=== PATIENT | male | born 1950 | race Caucasian/White ===

== ENCOUNTER 2020-10-05 13:58 | Emergency (ER) | payer BC, OTHER ==
[~2020-10-05] VITALS: Ht 180.3 cm; Wt 97.3 kg
[2020-10-05] MEDS ORDERED: TETanus/Pertussis (Acell)/Diphther VAC/PF (Tdap-Adult) 0.5ml syringe IMVAC ONE (17:25)
== END 2020-10-05 17:59 | disposition home or self-care (01) ==
LOC: ER 14:01
DX: S51.832A Puncture wound without foreign body of left forearm, initial encounter (principal); M25.532 Pain in left wrist; M79.632 Pain in left forearm; G89.29 Other chronic pain; X58.XXXA Exposure to other specified factors, initial encounter; Y93.89 Activity, other specified; Y92.89 Other specified places as the place of occurrence of the external cause; Y99.8 Other external cause status
CPT/HCPCS: 90471; 90715; 99283

== ENCOUNTER 2020-11-14 06:29 | Day surgery (SDC) | payer BC ==
[2020-11-07 14:14] LABS: BASOPHILS # (AUTO) 0.1 X10'3 (0-0.2); BASOPHILS % (AUTO) 0.7 % (0-1); EOSINOPHILS # (AUTO) 0.2 X10'3 (0-0.9); LYMPHOCYTES % (AUTO) 21.2 % (21-51); MEAN CORPUSCULAR HGB CONC 33.8 g/dL (33.0-36.5); MEAN CORPUSCULAR VOLUME 88.9 FL (78-98); MEAN PLATELET VOLUME 8.8 FL (7.4-10.4); MONOCYTES # (AUTO) 0.6 X10'3 (0-0.9); MONOCYTES % (AUTO) 6.3 % (2-12); NEUTROPHILS # (AUTO) 6.5 X10'3 (1.8-7.7); NEUTROPHILS % (AUTO) 69.8 % (42-75); PRE OP HEMATOCRIT 45.5 % (42.0-52.0); PRE OP HEMOGLOBIN 15.4 g/dL (14.0-17.9); PRE OP PLATELET COUNT 232 X10'3 (140-440); RED BLOOD COUNT 5.12 X10'6 (4.70-6.10); RED CELL DISTRIBUTION WIDTH 13.1 % (11.5-14.5)
[2020-11-07 14:27] LABS: ALBUMIN 4.3 G/DL (3.4-5.0); ALBUMIN/GLOBULIN RATIO 1.1 (1.1-1.5); ALKALINE PHOSPHATASE 84 IU/L (46-116); BLOOD UREA NITROGEN 18 MG/DL (7-18); BUN/CREATININE RATIO 16.5 (5.4-32.0); CALCIUM 9.3 MG/DL (8.5-10.1); CHLORIDE 105 MMOL/L (99-107); CREATININE 1.09 MG/DL (0.60-1.10); PRE OP ALT 21 U/L (30-65); PRE OP ANION GAP 7 (8-16); PRE OP AST 17 U/L (10-37); PRE OP BILIRUB, TOTAL 0.6 MG/DL (0.0-1.0); PRE OP GLUCOSE 101 MG/DL (70-104); PRE OP POTASSIUM 4.3 MMOL/L (3.4-5.1); PRE OP SODIUM 141 MMOL/L (135-145); TOTAL CARBON DIOXIDE 28.7 MMOL/L (24-32); TOTAL PROTEIN 8.3 G/DL (6.4-8.2); eGFR 67 ML/MIN
[2020-11-14] VITALS (14 sets, daily range): BP systolic 101–153; BP diastolic 51–79
[~2020-11-14] VITALS: Ht 182.9 cm; Wt 96.0 kg
[~2020-11-14 06:29] MED LIST: AMLO10TA13 PO; BACL10TA2 PO; HYDR-3972 PO; OMEP-50 PO; ceFAZolin 2gm in dextrose, iso 50 ML IV ONE; famotidine 20mg tablet PO ONE; ringers solution, lacted 1,000 ML IV SCH
[2020-11-14] MEDS ORDERED: BUPIVAcaine/PF 2.5 mg/ml (0.25%) 30ml vial ONE (06:43)
[2020-11-14] MEDS ORDERED: LIDOcaine 1% 30ml preserv. free vial ONE (06:43)
[2020-11-14] MEDS ORDERED: sevoflurane 250ml liquid IH ONE (08:08)
[2020-11-14] MEDS ORDERED: fentaNYL/PF 50MCG/1 ML 2ML syringe ONE (08:13)
[2020-11-14] MEDS ORDERED: midazolam 2 mg/2 ml injection ONE (08:14)
[2020-11-14] MEDS ORDERED: rocuronium 10mg/ml inj IV ONE (08:22)
[2020-11-14] MEDS ORDERED: LIDOcaine 2% (20mg/ml) 5ml vial ONE (08:22)
[2020-11-14] MEDS ORDERED: neostigmine methylsulfate 1 MG/ML 10ml vial ONE (08:22)
[2020-11-14] MEDS ORDERED: dexamethasone sod phosphate 4mg/ml inj. ONE (08:22)
[2020-11-14] MEDS ORDERED: ondansetron/PF 4mg/2ml inj ONE (08:22)
[2020-11-14] MEDS ORDERED: propofol inj 20 ML IV ONE (08:22)
[2020-11-14] MEDS ORDERED: glycopyrrolate 0.2mg/ml inj ONE (08:22)
[2020-11-14] MEDS ORDERED: hydrALAZINE 20mg/ml inj. IV ONE (08:38)
[2020-11-14] MEDS ORDERED: ringers solution, lacted 1,000 ML IV SCH (08:45)
[2020-11-14] MEDS ORDERED: morphine 4 MG/ML inj SYRINge IV PRN (08:45)
[2020-11-14] MEDS ORDERED: ondansetron/PF 4mg/2ml inj IV PRN (08:45)
[2020-11-14] MEDS ORDERED: morphine 2 MG/ML inj. syringe IV PRN (08:45)
[2020-11-14] MEDS ORDERED: fentaNYL/PF 50MCG/1 ML 2ML syringe IV PRN ×2 (08:45)
[2020-11-14] MEDS ORDERED: labetalol 20mg/4ml (5mg/ml) syringe IV PRN (08:45)
[2020-11-14] MEDS ORDERED: hydrALAZINE 20mg/ml inj. IV PRN (08:45)
[2020-11-14] MEDS ORDERED: labetalol 20mg/4ml (5mg/ml) syringe IV ONE (09:26)
--- NOTE | 2020-11-14 09:42 | NUR ---
Received from OR via [facility], accompanied by Anesthesiologist MEGAN and report given by Anesthesiolgist. PT SLEEPY, VS-WNL MASK IN PLACE AT 10LTRS 97%O2, HAS SLEEP APNEA HISTORY, AUDIBLE SNORE NOTED, IVF RUNNING TO 20G IN R WRIST, SCDS IN PLACE, BANDAIDS X3 TO ABD CDI.
[2020-11-14] MEDS ORDERED: HYDROcodone/acetaminophen 5mg/325mg tablet PO PRN (09:55)
[2020-11-14] MEDS ORDERED: acetaminophen 1,000mg/100ml IV 100 ML IV ONE (10:40)
--- NOTE | 2020-11-14 11:45 | NUR ---
PT DRESSED, STOOD TO ATTEMPT TO VOID, ONLY ABLE TO VOID A FEW TABLESPOONS, RESTING AGAIN AND WILL TRY IN A LITTLE BIT. PAIN 05/12 BUT REFUSED PO NORCO
--- NOTE | 2020-11-14 12:30 | NUR ---
PATIENT WAS ABLE TO WALK SOME AND VOIDED X3 IN SMALL AMOUNTS. PATIENT VERBALIZED UNDERSTANDING, OPPORTUNITY TO ASK QUESTIONS GIVEN AND PATIENT COMFORTABLE WITH DC. PT ADVISED IF ANY DIFFICULTY WITH VOIDING OR INCREASED PAIN TO CALL DR'S OFFICE. DRGS TO ABD CDI. PATIENT HAS MET ALL DC CRITERIA FOR DC HOME. I HAVE REVIEWED D/C INSTRUCTIONS WITH PATIENT. TAKEN OUT VIA WHEELCHAIR WHERE PATIENT WAS TAKEN HOME WITH ALL BELONGINGS. FAMILY GAVE PATIENT TRANSPORT HOME.
== END 2020-11-14 12:32 | disposition home or self-care (01) ==
LOC: PAS 06:29
PROVIDERS: ATTEND Surgery
DX: K40.20 Bilateral inguinal hernia, without obstruction or gangrene, not specified as recurrent (principal); G89.29 Other chronic pain; I10 Essential (primary) hypertension; K21.9 Gastro-esophageal reflux disease without esophagitis; G47.33 Obstructive sleep apnea (adult) (pediatric); M19.90 Unspecified osteoarthritis, unspecified site; Z98.890 Other specified postprocedural states; Z79.899 Other long term (current) drug therapy; Z20.822 Contact with and (suspected) exposure to COVID-19; Z82.3 Family history of stroke; Z82.49 Family history of ischemic heart disease and other diseases of the circulatory system; Z83.3 Family history of diabetes mellitus; Z82.61 Family history of arthritis; Z87.891 Personal history of nicotine dependence
CPT/HCPCS: 36415; 49650; 80053; 82948; 85025; 87635; 93005; C1781; J0131; J0360; J1100; J2001; J2250; J2270; J2405; J2704; J2710; J3010; J3490; J7120; A4215; A4618